=== PATIENT | female | born 1995 | race Caucasian/White ===

== ENCOUNTER 2018-10-12 00:42 | Emergency (ER) | payer SELFPAY ==
--- NOTE | 2018-10-12 01:51 | ED.PDOC ---
History of Present Illness - General Chief Complaint: Behavioral / Psych Stated Complaint: suicidal ideas Time Seen by Provider: 10/12/18 01:30 Source: patient Exam Limitations: no limitations - History of Present Illness Initial Comments: Patient is a 23 F with a history of bipolar and suicidal ideations who presents with suicidal ideations. She says that "lately" she has not been sleeping regularly and has been taking her "bipolar meds" at varying times of the day, although she says that she is taking them daily. Today she had the idea of cutting her legs "until I am numb" then "cutting my wrists". She intermittently uses alcohol and says the last time was 5 days ago. Denies history of alcohol withdrawal seizures. She occasionally uses marijuana. Denies homicidal ideation. No other complaints. Timing/Duration: unsure Severity: mild Improving Factors: nothing Worsening Factors: nothing Associated Symptoms: denies symptoms Allergies/Adverse Reactions: Allergies No Known Drug Allergy Allergy (Verified 08/19/18 03:05) Home Medications: Ambulatory Orders Clonazepam 1 mg PO DAILY 08/19/18 Duloxetine HCl 60 mg PO DAILY 08/19/18 Multiple Vitamins W/ Minerals [Multivitamin Women] 1 tab PO BEDTIME 08/19/18 Oxcarbazepine 600 mg PO DAILY 08/19/18 Prazosin HCl 4 mg PO BEDTIME 08/19/18 Gabapentin 300 mg PO BID 10/12/18 QUEtiapine FUMARATE [SEROquel] 100 mg PO DAILY 10/12/18 hydrOXYzine PAMOATE [Vistaril] 25 mg PO DAILY 10/12/18 Review of Systems - Review of Systems Constitutional: States: no symptoms reported EENTM: States: no symptoms reported Respiratory: States: no symptoms reported Cardiology: States: no symptoms reported Gastrointestinal/Abdominal: States: no symptoms reported Genitourinary: States: no symptoms reported Musculoskeletal: States: no symptoms reported Skin: States: no symptoms reported Neurological: States: no symptoms reported Endocrine: States: no symptoms reported Hematologic/Lymphatic: States: no symptoms reported Past Medical History (General) - Patient Medical History Hx Seizures: No Hx Stroke: No Hx Dementia: No Hx Asthma: No Hx of COPD: No Hx Cardiac Disorders: No Hx Congestive Heart Failure: No Hx Pacemaker: No Hx Hypertension: No Hx Thyroid Disease: No Hx Diabetes: No Hx Gastroesophageal Reflux: No Hx Renal Disease: No Hx of HIV: No Hx MRSA: No Surgical History: no surgical history - Vaccination History Hx Tetanus, Diphtheria Vaccination: No Hx Influenza Vaccination: No Hx Pneumococcal Vaccination: No - Social History Hx Tobacco Use: No Hx Alcohol Use: Yes - occasionally Hx Substance Use: No Hx Depression: Yes - Female History Patient is a Female of Child Bearing Age (10 -59 yrs old): Yes Patient : No - Triage Comment ED Triage Comment: States had suicidal ideations tonight, no attempt. [facility], reccommended eval in ER by [facility] Family Medical History - Family History Mother Living Status: Hx Family Hypertension: Yes Hx Family Diabetes: Yes Hx Family Cancer: Yes Father Living Status: Still Living Hx Family Hypertension: Yes Hx Family Diabetes: Yes Physical Exam - Physical Exam General Appearance: Alert Eye Exam: bilateral normal Ears, Nose, Throat: normal ENT inspection Neck: non-tender, full range of motion, supple Respiratory: lungs clear, normal breath sounds, no respiratory distress Cardiovascular/Chest: normal peripheral pulses, regular rate, rhythm, no edema Gastrointestinal/Abdominal: normal bowel sounds, non tender, soft Back Exam: normal inspection, no CVA tenderness Extremity: normal range of motion, non-tender, normal inspection 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 She was accepted for transfer to the crisis center. Departure - Departure Clinical Impression: Suicidal ideation Disposition: Discharge to Home or Self Care Condition: Good Departure Forms: ED Discharge - Pt. Copy, Patient Portal Self Enrollment Instructions: DI for Suicidal Ideation-Adult Diet: other - as per your doctor Home Medications: Ambulatory Orders Clonazepam 1 mg PO DAILY 08/19/18 Duloxetine HCl 60 mg PO DAILY 08/19/18 Multiple Vitamins W/ Minerals [Multivitamin Women] 1 tab PO BEDTIME 08/19/18 Oxcarbazepine 600 mg PO DAILY 08/19/18 Prazosin HCl 4 mg PO BEDTIME 08/19/18 Gabapentin 300 mg PO BID 10/12/18 QUEtiapine FUMARATE [SEROquel] 100 mg PO DAILY 10/12/18 hydrOXYzine PAMOATE [Vistaril] 25 mg PO DAILY 10/12/18
[2018-10-12 02:27] VITALS: O2SAT 97
[2018-10-12 03:07] VITALS: BP 109/73; TEMP 98.4
== END 2018-10-12 03:06 | disposition home or self-care (01) ==
LOC: ER 00:42
DX: R45.851 Suicidal ideations (principal); F31.9 Bipolar disorder, unspecified; Z79.899 Other long term (current) drug therapy

== ENCOUNTER 2018-12-02 22:44 | Emergency (ER) | payer SELFPAY ==
[2018-12-02 23:03] VITALS: O2SAT 96
[2018-12-03 00:07] VITALS: BP 104/90; TEMP 97.4
== END 2018-12-03 | disposition home or self-care (01) ==
LOC: ER 22:44
DX: J01.90 Acute sinusitis, unspecified (principal); J40 Bronchitis, not specified as acute or chronic; F32.9 Major depressive disorder, single episode, unspecified; Z79.899 Other long term (current) drug therapy